=== PATIENT | female | born 2005 | race Caucasian/White ===

== ENCOUNTER 2024-01-26 05:24 | Emergency (ER) | payer OTHER, SELFPAY ==
[2024-01-26 05:24] VITALS: BP 147/99; PULSE 96; RESP 15; TEMP 36.6; O2SAT 100
--- NOTE | 2024-01-26 06:23 | ED.GENADULT ---
HPI - General Adult General Chief complaint: Dizziness Stated complaint: dizzy and vomiting Time Seen by Provider: 01/26/24 05:39 History of Present Illness HPI narrative: Patient is a 18-year-old female who presents emergency department with chief complaint of dizziness. Patient states that she started having an episode of dizziness and reports that she felt somewhat nausea and had some vomiting. Patient states that she is feeling much better after receiving some a Zofran and reports that she has had a lot of stress the patient denies suicidal or homicidal ideation Related Data Allergies Allergy/AdvReac Type Severity Reaction Status Date / Time No Known Allergies Allergy Verified 01/26/24 05:31 Review of Systems Review of Systems: A 10 system review of systems was completed on the patient and is negative except for what is stated in the HPI. Nursing and ancillary documentation was reviewed. Exam Narrative: GENERAL: Well-appearing, well-nourished, and in no acute distress. HEAD: Normocephalic, atraumatic. EYES: PERRLA and EOMI. ENT: Nares clear, no rhinorrhea or epistaxis. Mucous membranes moist. NECK: Supple. CHEST: Clear to auscultation. No respiratory distress. HEART: Regular rate and rhythm. No murmur heard. Normal peripheral pulses. ABDOMEN: Soft, nontender, nondistended, normal active bowel sounds. EXTREMITIES: Normal range of motion. No edema. SKIN: Warm, dry, no rash. NEURO: No focal deficits. Alert and oriented x3. PSYCH: Normal mood and affect. Course Vital Signs Vital signs: Vital Signs Temperature 36.6 C 01/26/24 05:24 Pulse Rate 96 01/26/24 05:24 Respiratory Rate 15 01/26/24 05:24 Blood Pressure 147/99 H 01/26/24 05:24 Pulse Oximetry 100 01/26/24 05:24 Oxygen Delivery Room Air 01/26/24 05:24 Temperature 36.6 C 01/26/24 05:24 Pulse Rate 96 01/26/24 05:24 Respiratory Rate 15 01/26/24 05:24 Blood Pressure 147/99 H 01/26/24 05:24 Pulse Oximetry 100 01/26/24 05:24 Oxygen Delivery Room Air 01/26/24 05:24 Medical Decision Making [facility] Narrative Medical decision making narrative: Differential diagnosis includes UTI, stress reaction, anxiety, substance abuse, Patient denies history of illicit drug use or marijuana use. The patient does report that she is feeling back to normal at this point Urine drug screen was negative Vital Signs Vital Signs: Vital Signs Temperature 36.6 C 01/26/24 05:24 Pulse Rate 96 01/26/24 05:24 Respiratory Rate 15 01/26/24 05:24 Blood Pressure 147/99 H 01/26/24 05:24 Pulse Oximetry 100 01/26/24 05:24 Oxygen Delivery Room Air 01/26/24 05:24 Temperature 36.6 C 01/26/24 05:24 Pulse Rate 96 01/26/24 05:24 Respiratory Rate 15 01/26/24 05:24 Blood Pressure 147/99 H 01/26/24 05:24 Pulse Oximetry 100 01/26/24 05:24 Oxygen Delivery Room Air 01/26/24 05:24 Lab Data Labs: Lab Results 01/26/24 Range/Units 06:15 Urine Color Pending Urine Appearance Pending Urine pH Pending Ur Specific [place] Pending Urine Protein Pending Urine Glucose (UA) Pending Urine Ketones Pending Ur Blood (Man) Pending Urine Nitrate Pending Urine Bilirubin Pending Urine Urobilinogen Pending Leukocyte Esterase Rfl Pending Urine Opiates Screen Negative (Negative) Urine Methadone Screen Negative (Negative) Ur Barbiturates Screen Negative (Negative) Ur Phencyclidine Scrn Negative (Negative) Ur Amphetamine Screen Negative (Negative) U Benzodiazepines Scrn Negative (Negative) Urine Cocaine Screen Negative (Negative) U Cannabinoids Screen Negative (Negative) UCG Bedside Result Negative Reference Range: Negative Discharge Plan Discharge Clinical Impression: Nausea and vomiting Patient Disposition: Home, Self-Care Condition: Stable I
[2024-01-26 06:27] LABS: Appearance Urine Cloudy (Clear); Bacteria Urine Rare /hpf; Bilirubin Urine Negative (Negative); Blood Urine Negative (Negative); Color Urine Yellow (Yellow); Glucose Urine UA Negative (Negative); Ketones Urine Negative (Negative); Leukocyte Esterase Ur Negative LEU/UL (Negative); Nitrate Urine Negative (Negative); Non Pathogenic Casts 0-2; Protein Urine Negative (Negative); RBC Urine 0-2 /hpf (0-2); Specific Grav Ur 1.022 (1.001-1.035); Squamous Epithelial Cell Urine Occasional /hpf (Few); WBC Urine 0-5 /hpf (0-3); pH Urine 7.5 (5.0-9.0)
[2024-01-26 06:40] LABS: Amphetamine Screen Urine Negative (Negative); Barbiturate Screen Urine Negative (Negative); Benzodiazepines Screen Urine Negative (Negative); Cannabinoid Screen Urine Negative (Negative); Cocaine Screen Urine Negative (Negative); Methadone Screen Urine Negative (Negative); Opiate Screen Urine Negative (Negative); Phencyclidine Screen Urine Negative (Negative)
[2024-01-26 06:59] LABS: Add Urine Microscopic? YES
[2024-01-26 07:21] VITALS: BP 115/76; PULSE 90; RESP 18; O2SAT 100
== END 2024-01-26 07:22 | disposition home or self-care (01) ==
PROVIDERS: Emergency Provider Emergency Medicine
DX: R11.2 Nausea with vomiting, unspecified (principal)
CPT/HCPCS: 80307; 81001; 81025; 99283